=== PATIENT | female | born 1995 | race Caucasian/White ===

== ENCOUNTER → 2018-07-27 | Outpatient (CLI) | payer MEDICAID ==
[~2018-07-27] VITALS: Ht 177.8 cm; Wt 93.0 kg
[~2018-07-27] MED LIST: AMOX-362 PO; IBUP-56 PO; LOR5/325 PO; LR(*) 1000 ML BAG 1,000 ML IV ONE; LR(*) 1000 ML BAG 1,000 ML IV PRN; NAPR550T22 PO; NITR-105 PO; NITROFURANTOIN MONO 100 MG PO ONE; ONDANSETRON 4 MG/2 ML VIAL IVP ONE; OXYC-865 PO; SULF-198 PO; TRAZ50 PO; cefTRIAXone 1 GM VIAL IVP ONE
[2018-07-27 02:05] VITALS: BP 136/86
[2018-07-27 02:12] VITALS: Ht 177.8 cm; Wt 93.0 kg
[2018-07-27] MEDS: ACETAMINOPHEN 500 MG TAB PO PRN ×2 (05:34→07:53)
[2018-07-27 06:20] LABS: PLATELET COUNT, AUTOMATED 152 K/uL (150-450)
== END ==
LOC: L&D 01:04 → OB 01:04 → UNDOADMOB 01:04 → UNDODISOB 07:39 → EDSTATUS 08-12 15:33
PROVIDERS: ATTEND Student in an Organized Health Care Education/Training Program
DX: O26.893 Other specified pregnancy related conditions, third trimester (principal); R50.9 Fever, unspecified; R11.2 Nausea with vomiting, unspecified; Z3A.36 36 weeks gestation of pregnancy
CPT/HCPCS: 36415; 59025; 81001; 85025; 87088; J0696; J2405; J7120; G0378; G0379